=== PATIENT | male | born 1960 | race Caucasian/White ===

== ENCOUNTER 2020-05-28 20:56 | Emergency (ER) | payer MEDICAID ==
[~2020-05-28] VITALS: Ht 180.3 cm; Wt 68.4 kg
[2020-05-28 20:58] VITALS: BP 154/94
--- NOTE | 2020-05-28 22:02 | NUR ---
NO ANSWER WHEN CALLED FOR ROOM
== END 2020-05-28 22:29 | disposition left against medical advice (07) ==
LOC: ED 22:21
DX: F15.10 Other stimulant abuse, uncomplicated (principal); Z53.21 Procedure and treatment not carried out due to patient leaving prior to being seen by health care provider